=== PATIENT | female | born 1955 | race Caucasian/White ===

== ENCOUNTER 2016-06-20 08:27 | Outpatient (CLI) | payer OTHER ==
--- NOTE | 2016-06-20 10:23 | DIAGNOSTIC IMAGING REPORT ---
PROCEDURE: MR UPPER EXTREMITY W/O CONT-RT INDICATION: OA RT SHOULDER TECHNIQUE: PD and PD fat sat axial, T1 and PD fat sat coronal, PD and STIR sagittal sequences through the shoulder. COMPARISON: 06/15/2015 plain films FINDINGS: Rotator cuff: There is a complete, full-thickness, large rotator cuff tear involving the anterior fibers of the supraspinatus tendon. Tear measures approximately 13 mm in AP diameter and there is retraction of the tendon fibers about 2.6 cm proximal. Severe tendinopathy and articular surface irregularity involving the infraspinatus tendon diffusely. Moderate tendinopathy involving the distal subscapularis tendon. There is extensive irregularity and thickening involving the transverse humeral ligament as it crosses over the bicipital groove. Biceps tendon: There is thickening and intrinsic intermediate signal involving the entire intra-articular biceps tendon from the anchor. It maintains a normal course. There is some thinning and irregularity of the proximal extra-articular portion in the bicipital groove. The rotator interval structures appear intact. Osseous structures and articular surfaces: The acromion is type 3. There are anterior and inferior undersurface spurs. These directly contact the rotator tendons. Mild to moderate hypertrophy and degenerative spurring at the acromioclavicular junction seen more proximal, also mildly impinging on the supraspinatus myotendinous junction. Small subcortical cystic changes posterior lateral humeral head at the infraspinatus insertion. Mild edema at the AC joint. Otherwise normal marrow signal. Slight spurring along the inferior aspect of the humeral head at the articular surface. Moderate chondromalacia involving the posterior aspect of the glenoid fossa and moderate cartilage loss diffusely over the superior humeral head. Labral ligamentous complex: Degenerative intermediate signal involving the entire superior labrum. Fragmentation involving the anterior superior corner. Labrum is otherwise intact. Supporting ligaments of the humeral head appear grossly intact. Fluid, soft tissues, and joint space: Moderate to large glenohumeral joint effusion decompressing into the subscapularis recess and down the biceps tendon sheath. Moderate-sized subacromial subdeltoid bursal effusion. Mild to moderate atrophy of the supraspinatus muscle. No intramuscular edema. The capsule appears of normal thickness. There appear to be a very small hypointense fragments dependently in the axillary recess joint effusion and also within the subdeltoid bursal effusion. IMPRESSION: 1. Large, complete, chronic-appearing supraspinatus rotator cuff tendon tear. 2. Moderate to severe tendinopathy and partial tearing involving subscapularis and infraspinatus respectively. 3. Moderate tendinopathy and probable intra-articular partial tearing of the biceps tendon. Rotator interval appears intact. 4. Anterior and inferior acromial spurring, likely contributed to rotator cuff tear. 5. Mild to moderate chondromalacia involving the glenohumeral joint. 6. Small anterior superior labral tear. 7. Moderate to large glenohumeral joint and moderate subacromial subdeltoid bursal effusion with small amounts of debris.
== END 2016-06-20 23:00 ==
LOC: MRI SRH 08:27
DX: S46.011A Strain of muscle(s) and tendon(s) of the rotator cuff of right shoulder, initial encounter (principal); M94.211 Chondromalacia, right shoulder; S43.431A Superior glenoid labrum lesion of right shoulder, initial encounter